=== PATIENT | female | born 1940 | race Caucasian/White ===

== ENCOUNTER → 2016-12-04 | Outpatient (CLI) | payer OTHER | END | disposition home or self-care (01) | LOC: CFH 13:20 | PROVIDERS: ATTEND Internal Medicine | DX: Z13.820 Encounter for screening for osteoporosis (principal); M85.88 Other specified disorders of bone density and structure, other site; E78.2 Mixed hyperlipidemia; I10 Essential (primary) hypertension; F06.31 Mood disorder due to known physiological condition with depressive features; E55.9 Vitamin D deficiency, unspecified; G89.29 Other chronic pain | CPT/HCPCS: 77080 ==

== ENCOUNTER → 2018-03-12 | Outpatient (CLI) | payer MEDICARE | END | disposition home or self-care (01) | LOC: PETCFH 08:10 | PROVIDERS: ATTEND Nurse Practitioner Primary Care | DX: R79.9 Abnormal finding of blood chemistry, unspecified (principal); E78.2 Mixed hyperlipidemia; E55.9 Vitamin D deficiency, unspecified; R53.83 Other fatigue; R93.8 Abnormal findings on diagnostic imaging of other specified body structures; F06.31 Mood disorder due to known physiological condition with depressive features; F51.01 Primary insomnia; I10 Essential (primary) hypertension; R01.1 Cardiac murmur, unspecified; G89.29 Other chronic pain; Z79.899 Other long term (current) drug therapy | CPT/HCPCS: 78070; A9500 ==

== ENCOUNTER 2019-05-28 13:29 | Outpatient (CLI) | payer MEDICARE ==
[2019-05-28 15:59] LABS: BASOPHILS # (AUTO) 0.05 x10^3/uL (0-0.1); BASOPHILS % (AUTO) 1 % (0-1); EOSINOPHILS # (AUTO) 0.39 x10^3/uL (0-0.4); EOSINOPHILS % (AUTO) 4 % (1-7); LYMPHOCYTES # (AUTO) 3.25 x10^3/uL (1-3.4); LYMPHOCYTES % (AUTO) 30 % (22-44); MD NO; MEAN CORPUSCULAR HEMOGLOBIN 28.6 pg (27.0-34.8); MEAN CORPUSCULAR HGB CONC 32.3 g/dL (32.4-35.8); MEAN CORPUSCULAR VOLUME 88.7 fL (80-100); MEAN PLATELET VOLUME 8.3 fL (7.4-10.4); MONOCYTES # (AUTO) 0.58 x10^3/uL (0.2-0.8); MONOCYTES % (AUTO) 5 % (2-9); NEUTROPHILS # (AUTO) 6.42 x10^3/uL (1.8-6.8); NEUTROPHILS % (AUTO) 60 % (42-75); PLATELET COUNT 342 x10^3/uL (130-400); RED BLOOD COUNT 5.27 x10^6/uL (3.82-5.3)
[2019-05-28 16:06] LABS: CULTURE INDICATED? YES; MICROSCOPIC INDICATED
[2019-05-28 16:43] LABS: ALBUMIN 4.2 g/dL (3.4-5.0); ANION GAP 8 mmol/L (5-15); CALCIUM 9.1 mg/dL (8.5-10.1); CHLORIDE 105 mmol/L (98-107)
[2019-05-28 17:13] LABS: % IRON SATURATION 19 % (20-55); ALANINE AMINOTRANSFERASE 16 U/L (12-78); ALKALINE PHOSPHATASE 86 U/L (45-117); CHOL/HDL RATIO 2.8; CHOLESTEROL, TOTAL 171 mg/dL (140-239); CREATININE 1.29 mg/dL (0.55-1.02); FOLATE LEVEL 12.6 ng/mL (3.1-17.5); FREE T4 (FREE THYROXINE) 1.26 ng/dL (0.76-1.46); HDL CHOL % 36 % (28-40); HDL CHOLESTEROL (DIRECT) 62 mg/dL (40-60); IRON LEVEL 58 mcg/dL (50-170); LDL CHOLESTEROL,CALCULATED 85 mg/dL (54-169); LDL/HDL RATIO 1.4 (0.5-3.0); TOTAL IRON BINDING CAPACITY 299 mcg/dL (250-450); TRANSFERRIN 264 mg/dL (200-360); TRIGLYCERIDES 120 mg/dL (50-200); VLDL CHOLESTEROL 24 mg/dL (0-25)
[2019-05-28 21:54] LABS: HEMOGLOBIN A1C 5.7 % (4.2-6.3)
== END 2019-05-28 23:59 | disposition home or self-care (01) ==
LOC: CFH 13:29
PROVIDERS: ATTEND Nurse Practitioner Primary Care
DX: E78.2 Mixed hyperlipidemia (principal); E55.9 Vitamin D deficiency, unspecified; I10 Essential (primary) hypertension; E88.81 Metabolic syndrome and other insulin resistance; F06.31 Mood disorder due to known physiological condition with depressive features; F51.01 Primary insomnia; J98.4 Other disorders of lung; N39.0 Urinary tract infection, site not specified; G47.30 Sleep apnea, unspecified; R53.83 Other fatigue; R79.9 Abnormal finding of blood chemistry, unspecified; Z79.899 Other long term (current) drug therapy
CPT/HCPCS: 36415; 80053; 80061; 81001; 82306; 82607; 82728; 82746; 83036; 83540; 83550; 84207; 84425; 84439; 84443; 84466; 84481; 85025; 87086